=== PATIENT | female | born 1960 | race Caucasian/White ===

== ENCOUNTER 2017-05-14 19:50 | Emergency (ER) | payer OTHER ==
[~2017-05-14] VITALS: Ht 154.9 cm; Wt 75.3 kg
[~2017-05-14 19:50] MED LIST: ADVAIR 250-501 EACH; CELEXA 20 MG TA20 M1; HYDROCODON-ACE1 EAC7 PO; MEDROLDOSEPACK PO; MELOXICAM15 MG; NORCO 5-325 TA1 EACH PO; PROVENTIL HFA6.7 G1; XANAX 0.5 MG0.5 M1; ZPAK PO
[2017-05-14] MEDS ORDERED: SYNTHROID75 MCG PO (20:07)
[2017-05-14] MEDS ORDERED: NEURONTIN600 MG PO (20:07)
[2017-05-14] MEDS ORDERED: PERCOCET 7.5-31 EACH PO (21:18)
[2017-05-14 21:25] VITALS: BP 97/56
== END 2017-05-14 21:26 | disposition home or self-care (01) ==
LOC: M.ERS 19:50
DX: M25.551 Pain in right hip (principal); J44.9 Chronic obstructive pulmonary disease, unspecified; Z88.1 Allergy status to other antibiotic agents; Z88.5 Allergy status to narcotic agent